=== PATIENT | female | born 2000 | race Caucasian/White ===

== ENCOUNTER 2020-01-09 10:21 | Outpatient (CLI) | payer BC, SELFPAY ==
[2020-01-09 12:03] LABS: Hematocrit 34.5 % (37.0-47.0); Hemoglobin 11.3 g/dL (12.0-15.0)
[2020-01-09 12:19] LABS: Glucose 1 Hour PP 50gm Dose 115 mg/dL
[2020-01-09 12:56] LABS: HIV 1/2 Ab P24 Ag Result Negative (Negative)
[2020-01-09] MEDS: RHO(D) IMMUNE GLOBULIN 300 MCG SYRINGE IM (15:48)
== END 2020-01-09 10:22 | disposition home or self-care (01) ==
PROVIDERS: Visit Provider Obstetrics & Gynecology
DX: Z34.92 Encounter for supervision of normal pregnancy, unspecified, second trimester (principal); Z3A.00 Weeks of gestation of pregnancy not specified
CPT/HCPCS: 36415; 82947; 85014; 85018; 85461; 86703; 90384; 96372; G0432; J2790

== ENCOUNTER 2021-04-15 14:11 | Emergency (ER) | payer OTHER, SELFPAY ==
--- NOTE | ~2021-04-15 | US_ITS ---
EXAMINATION: US OB <= 14 weeks fetus DATE: 04/15/2021 16:39 INDICATION: Bleeding during first trimester TECHNIQUE: Real-time pelvic transabdominal and transvaginal ultrasound was performed. COMPARISON: None. FINDINGS: The uterus measures 11.3 x 7.8 x 8.7 cm. There is an intrauterine gestational sac. There i s a 1.7 x 1.1 x 1.6 cm hypoechoic area adjacent to the gestational sac. A yolk sac is identified. Fet al heart motion is identified measuring 169 beats per minute (bpm) by M-mode Doppler. The crown rump length measures 2.4 cm , which correlates with an estimated gestational age of 9 weeks and 1 da y(s) (+/-) 6 day(s). The right ovary measures 2.7 x 2.3 x 3.5 cm. The left ovary measures 2.0 x 2.7 x 1.9 cm. There is nor mal vascular flow in the ovaries. There is no free fluid in the pelvis. IMPRESSION: 1. Live intrauterine with an estimated gestational age of 9 weeks and 1 day(s) (+/-) 6 day( s) and an estimated delivery date of 11/17/2021. 2. Small subchronic hematoma. Reviewed, dictated and finalized at location A. IMPRESSION: 1. Live intrauterine with an estimated gestational age of 9 weeks and 1 day(s) (+/-) 6 day(s) and an estimated delivery date of 11/17/2021. 2. Small subchronic hematoma.
[2021-04-15 14:13] VITALS: BP 111/71; PULSE 105; RESP 20; TEMP 36.5; O2SAT 98
[2021-04-15 14:36] LABS: Basophils Absolute Auto 0.1 K/mm3 (0.0-0.1); Basophils Percent Auto 0.7 % (0.2-1.2); Eosinophils Absolute Auto 0.2 K/mm3 (0-0.3); Eosinophils Percent Auto 2.5 % (0-4.4); Hematocrit 39.2 % (37.0-47.0); Hemoglobin 12.8 g/dL (12.0-15.0); Immature Granulocyte Absolute 0.03 K/mm3 (0.00-0.031); Immature Granulocyte Percent A 0.4 % (0-0.5); Lymphocytes Percent Auto 26.2 % (18.3-44.2); Mean Corpuscular HGB Conc 32.7 g/dl (32-36); Mean Corpuscular Hemoglobin 27.4 pg (26-34); Mean Corpuscular Volume 83.8 fl (80-100); Mean Platelet Volume 9.8 fl (7.4-10.4); Monocytes Absolute Auto 0.5 K/mm3 (0.1-0.6); Monocytes Percent Auto 6.2 % (2.6-8.5); Neutrophils Absolute Auto 4.6 K/mm3 (1.3-6.7); Platelet Count Result 311 k/mm3 (150-375); Red Blood Count 4.68 M/mm3 (4.2-5.4); Red Cell Distribution Width 13.5 % (11.5-14.5); White Blood Count 7.2 K/mm3 (4.5-10.0)
[2021-04-15 15:59] VITALS: BP 120/79; PULSE 90; RESP 18; O2SAT 100
--- NOTE | 2021-04-15 16:09 | PC.NURSE ---
JASMYNE Moses present at bedside
--- NOTE | 2021-04-15 16:14 | ED.PREGNANCY ---
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 <Aurelia Machuca PA-C - Last Filed: 04/15/21 17:18> Stated complaint: 10 WKS PREG , SPOTTING <Aurelia Machuca PA-C - Last Filed: 04/15/21 17:18> Time Seen by Provider: 04/15/21 16:07 <Aurelia Machuca PA-C - Last Filed: 04/15/21 17:18> Source: patient <Aurelia Machuca PA-C - Last Filed: 04/15/21 17:18> Mode of arrival: ambulatory <INGRID Herring Last Filed: 04/15/21 17:18> Limitations: no limitations <Aurelia Machuca PA-C - Last Filed: 04/15/21 17:18> History of Present Illness HPI Narrative: This is a 20 year old , about 10 weeks , that presents to the ER for vaginal spotting over the last couple of days. Reports some mild associating pelvic cramping. She has not seen her OB yet or had an ultrasound this . She is going to be seen at [facility]. Denies fever, or dysuria. <Aurelia Machuca PA-C - Last Filed: 04/15/21 17:18> Related Data Home medications: Home Medications Medication Instructions Recorded Confirmed Daily 04/15/21 04/15/21 <Aurelia Machuca PA-C - Last Filed: 04/15/21 17:18> Allergies/Adverse reactions: Allergies Allergy/AdvReac Type Severity Reaction Status Date / Time No Known Allergies Allergy Verified 04/15/21 16:04 <Aurelia Machuca PA-C - Last Filed: 04/15/21 17:18> Review of Systems Review of Systems: CONSTITUTIONAL: Denies fever GASTROINTESTINAL: Denies abdominal pain, nausea, vomiting GENITOURINARY: Denies dysuria <Aurelia Machuca PA-C - Last Filed: 04/15/21 17:18> All systems reviewed & are unremarkable except as noted in HPI and below <INGRID Herring Last Filed: 04/15/21 17:18> PMFSH Past Medical History Medical History: Medical History (Updated 04/15/21 @ 17:18 by Aurelia Machuca PA-C) No active medical problems <Aurelia Machuca PA-C - Last Filed: 04/15/21 17:18> Family History Family History: Family History (Updated 07/11/18 @ 10:10 by DOCTOR UNKNOWN) Grandparent Family history of malignant neoplasm of cervix Other No family history of cardiovascular disease No family history of hypertension No family history of malignant neoplasm <Aurelia Machuca PA-C - Last Filed: 04/15/21 17:18> Social History Social History: Social History Smoking status: Never smoker Alcohol intake: never <Aurelia Machuca PA-C - Last Filed: 04/15/21 17:18> Exam Narrative: GENERAL: Well-appearing, well-nourished, and in no acute distress. HEAD: Normocephalic, atraumatic. EYES: EOMI. CHEST: Clear to auscultation. No respiratory distress. No wheezes rales or rhonchi HEART: Regular rate and rhythm. No murmur heard. Normal peripheral pulses. ABDOMEN: Soft, nontender, nondistended, normal active bowel sounds. EXTREMITIES: Normal range of motion. No edema. SKIN: Warm, dry, no rash. NEURO: No focal deficits. Alert and oriented x3. PSYCH: Normal mood and affect PELVIC: Scant amount of brown discharge in the vaginal vault <Aurelia Machuca PA-C - Last Filed: 04/15/21 17:18> Course Consultations Consultation #1: Spoke with Dr. Bond about patient and work-up who will follow-up in clinic. <Aurelia Machuca PA-C - Last Filed: 04/15/21 17:18> Date: 04/15/21 <Aurelia Machuca PA-C - Last Filed: 04/15/21 17:18> Time: 17:16 <Aurelia Machuca PA-C - Last Filed: 04/15/21 17:18> Vital Signs Vital signs: Vital Signs Temperature 97.7 F 04/15/21 14:13 Pulse Rate 105 H 04/15/21 14:13 Respiratory Rate 20 04/15/21 14:13 Blood Pressure 111/71 04/15/21 14:13 Pulse Oximetry 98 04/15/21 14:13 Temperature 97.4 F L 04/15/21 18:59 Pulse Rate 66 04/15/21 18:59 Respiratory Rate 18 04/15/21 18:59 Blood Pressure 108/69 04/15/21 18:59 Pulse Oximetry 100 04/15/21 18:59 <Aurelia Machuca PA-C - Last Filed: 04/15/21 17:18> MDM - OB/Uterine Contract
[2021-04-15] MEDS: RHO(D) IMMUNE GLOBULIN 300 MCG/2 ML SYRINGE IM (17:55)
--- NOTE | 2021-04-15 18:48 | PC.NURSE ---
heart tones checked by RN Ang. HR 133 in right lower quadrant.
[2021-04-15 18:59] VITALS: BP 108/69; PULSE 66; RESP 18; TEMP 36.3; O2SAT 100
== END 2021-04-15 19:02 | disposition home or self-care (01) ==
PROVIDERS: Emergency Provider General Practice
DX: O46.8X1 Other antepartum hemorrhage, first trimester (principal); Z3A.09 9 weeks gestation of pregnancy
CPT/HCPCS: 36415; 76801; 84702; 85025; 85461; 90384; 96372; 99284; J2790

== ENCOUNTER 2021-08-21 11:50 | Outpatient (RCR) | payer OTHER, SELFPAY ==
[2021-08-18 15:50] LABS: Hematocrit 33.6 % (37.0-47.0); Hemoglobin 11.1 g/dL (12.0-15.0)
[2021-08-18 15:58] LABS: Glucose 1 Hour PP 50gm Dose 147 mg/dL
[2021-08-18 16:40] LABS: HIV 1/2 Ab P24 Ag Result Negative (Negative)
[2021-08-19 07:24] LABS: Rapid Plasma Reagin Non-Reactive (NonReactive)
[2021-08-21] MEDS: RHO(D) IMMUNE GLOBULIN 300 MCG/2 ML SYRINGE IM (12:03)
== END 2021-11-16 23:59 | disposition home or self-care (01) ==
LOC: ANHLAB 11:50
PROVIDERS: Visit Provider Obstetrics & Gynecology
DX: Z11.4 Encounter for screening for human immunodeficiency virus [HIV] (principal); Z29.13 Encounter for prophylactic Rho(D) immune globulin; O36.0130 Maternal care for anti-D [Rh] antibodies, third trimester, not applicable or unspecified; Z3A.00 Weeks of gestation of pregnancy not specified
CPT/HCPCS: 36415; 82947; 85014; 85018; 85461; 86592; 86703; 90384; 96372; G0432; J2790

== ENCOUNTER 2021-09-22 10:02 | Observation (INO) | payer OTHER, SELFPAY ==
--- NOTE | ~2021-09-22 | US_ITS ---
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 Biophysical profile. TECHNIQUE: Real-time transabdominal obstetric ultrasound. FINDINGS: No prior studies for comparison. There is a single living fetus in vertex presentation. The placenta is anterior without placenta pre via. ROBSON measures 12.4 cm. cardiac activity and movement is noted with a heart rate of 122 beats per minute. Biophysical profile: breathin of 2 movement: 2 of 2 tone: 2 of 2 Amniotic flud pocket: 2 of 2 Total score: 8 of 8 IMPRESSION: 1. Single living intrauterine in vertex presentation. 2: Total biophysical profile score of 8/8. Reviewed, dictated and finalized at location B. BINDER APPRENTICE
[2021-09-22 10:16] VITALS: BMI 40.6
--- NOTE | 2021-09-22 10:17 | OBADM ---
This patient, Jennifer Perez, admitted to the OB room OB Post 116 for observation. Patient/family oriented to hospital policies and general routines including ID bracelet, bed and alarms, visiting hours, pain management, procedures, bathroom and other care routines, personal items, smoking policy, room service/diet, and visiting hours. Patient/Family are encouraged to report perceived risks to care and to ask questions if they do not understand what they are told or what they should do.
[2021-09-22 10:26] VITALS: BP 102/70; PULSE 68
--- NOTE | 2021-10-06 07:45 | PM.OBTRLD ---
OB - Triage/Final Diagnosis Visit Information Comments/Additional reasons for admission: I have assessed the risk for this patient, Jennifer Perez, and determined that she would benefit from observation care. Final Diagnosis (1) False labor: Code(s): O47.9 - False labor, unspecified Status: Acute
== END 2021-09-22 12:14 | disposition home or self-care (01) ==
PROVIDERS: Admitting Provider Obstetrics & Gynecology; Visit Provider Obstetrics & Gynecology
DX: O47.03 False labor before 37 completed weeks of gestation, third trimester (principal); Z3A.32 32 weeks gestation of pregnancy
CPT/HCPCS: 76815; 76819; G0378; G0379

== ENCOUNTER 2021-11-07 04:53 | Inpatient (IN) | payer OTHER, SELFPAY ==
[2021-11-07] VITALS (82 sets, daily range): BP systolic 74–123; BP diastolic 26–98; PULSE 55–118; RESP 18; TEMP 36.6–36.9; O2SAT 94–100; BMI 40.6
--- OUTSIDE RECORDS SUMMARY | 2021-11-07 04:54 | XMS_ITS | Encounter Summary ---
:2000 Author Reason for Visit None recorded. Assessment and Plan 1. Nonreassuring status ? non-stress test Discussion Note: None recorded.Patient educational handouts: No information available. Plan of Care Reminders Provider Appointments None ? ? recorded. Lab None ? ? recorded. Referral None ? ? recorded. Procedures None ? ? recorded. Surgeries None ? ? recorded. Imaging 10/28/2021 [place] Non-stress Test Medications Name Start Date ? ? ? Medications Administered None recorded. Vitals None recorded. Results Lab Results None recorded. Allergies Code Code System Name Reaction Severity Onset NKDA ? ? ? Problems Name Status Onset Date Source ? Active 05/16/2021 ? Procedures Date Name Performed by ? 10/28/2021 Non-stress Test [place] [address] [place] [address] [address]
--- OUTSIDE RECORDS SUMMARY | 2021-11-07 04:54 | XMS_ITS ---
:2000 Author Care Team Providers Name Role Phone Shani Morillo Primary Care Provider Unavailable Allergies Code Code System Name Reaction Severity Status Onset NKDA ? Medications Name Status Start Date Stop Date ? ? nitrofurantoin Completed ? 07/07/2021 monohydrate/macrocrystals 100 mg capsule Active ? Not available Problems Name Status Onset Date Source ? Active 05/16/2021 ? Procedures Date Name Performed by ? 07/07/2021 US, Obstetric, 2Nd or 3Rd Trimester [place] [address] ([address]) 07/07/2021 US, Obstetric, Transvaginal [place] [address] [place] [address] ([address]) 07/26/2021 US, Obstetric, Follow-up [place] [address] [place] [address] ([address]) 09/22/2021 Non-stress [place] [address] ([address]) 10/28/2021 Non-stress Test [facility] Turcios
--- OUTSIDE RECORDS SUMMARY | 2021-11-07 04:54 | XMS_ITS | Encounter Summary ---
:2000 Author Reason for Visit OB visit OB [id number] EDC 11/12/2021 LMP 02/05/2021 Assessment and Plan Assessment Note Patient is __38_weeks . Dis cussed plan. 1. Routine care Discussion Note: None recorded.Patient educational handouts: No information available. Plan of Care Reminders Provider Appointments None ? ? recorded. Lab None ? ? recorded. Referral None ? ? recorded. Procedures None ? ? recorded. Surgeries None ? ? recorded. Imaging None ? ? recorded. Medications Name Start Date ? ? ? Medications Administered None recorded. Vitals Height Weight BMI Blood Pressure 5 ft 9 in 277 lbs 40.9 kg/m2 115/76 mm[Hg] Results Lab Results None recorded. Allergies Code Code System Name Reaction Severity Onset NKDA ? ? ? Problems Name Status Onset Date Source ? Active 05/16/2021 ? Procedures Date Name Performed by ? 10/28/2021 Non-stress Test [facility]
--- OUTSIDE RECORDS SUMMARY | 2021-11-07 04:54 | XMS_ITS | Encounter Summary ---
:2000 Author Reason for Visit OB visit 37W 6D EDC 11/12/2021 Assessment and Plan Assessment Note Patient is _37__weeks . Dis cussed plan. 1. Routine care [...] BMI Blood Pressure 5 ft 9 in 280 lbs 41.3 kg/m2 119/78 mm[Hg] Results Lab Results None recorded. Allergies Code Code System Name Reaction Severity Onset NKDA ? ? ? Problems Name Status Onset Date Source ? Active 05/16/2021 ? Procedures Date Name Performed by ? 10/28/2021 Non-stress Test [place]
--- OUTSIDE RECORDS SUMMARY | 2021-11-07 04:54 | XMS_ITS | Encounter Summary ---
:2000 Author Reason for Visit OB visit OB [id number] EDC 11/12/2021 LMP 02/05/2021 Assessment and Plan Assessment Note Patient is ___weeks . Discu ssed plan. 1. Routine care Discussion Note: None recorded.Patient educational handouts: No information available. Plan of Care Reminders Provider Appointments None ? ? recorded. Lab None ? ? recorded. Referral None ? ? recorded. Procedures None ? ? recorded. Surgeries None ? ? recorded. Imaging None ? ? recorded. Medications Name Start Date ? ? ? Medications Administered None recorded. Vitals Height BMI 5 ft 9 in 41.3 kg/m2 Results Lab Results None recorded. Allergies Code Code System Name Reaction Severity Onset NKDA ? ? ? Problems Name Status Onset Date Source ? Active 05/16/2021 ? Procedures None recorded. Vaccine List None recorded. Social History Tobacco Smoking Status Never Smoker What is the highest grade or level of school you have [id number] 4-0 co
--- OUTSIDE RECORDS SUMMARY | 2021-11-07 04:55 | XMS_ITS | Encounter Summary ---
:2000 Author Reason for Visit OB visit 28w5d Assessment and Plan 1. Routine care Discussion Note: None recorded.Patient [...] BMI Blood Pressure 5 ft 9 in 271 lbs 40 kg/m2 112/76 mm[Hg] Results Lab Results None recorded. Allergies Code Code System Name Reaction Severity Onset NKDA ? ? ? Problems Name Status Onset Date Source ? Active 05/16/2021 ? Procedures Date Name Performed by ? 07/26/2021 US, Obstetric, Follow-up [place] [address] [place] [address]
--- OUTSIDE RECORDS SUMMARY | 2021-11-07 04:55 | XMS_ITS | Encounter Summary ---
:2000 Author Reason for Visit OB visit Assessment and Plan Assessment Note Patient is [...] BMI Blood Pressure 5 ft 9 in 281 lbs 41.5 kg/m2 117/72 mm[Hg] Results Lab Results None recorded. Allergies Code Code System Name Reaction Severity Onset NKDA ? ? ? Problems Name Status Onset Date Source ? Active 05/16/2021 ? Procedures Date Name Performed by ? 09/22/2021 Non-stress Test [place] [id number] [address]
--- OUTSIDE RECORDS SUMMARY | 2021-11-07 04:55 | XMS_ITS | Encounter Summary ---
:2000 Author Reason for Visit OB visit 30w5d Assessment and Plan 1. Routine care Discussion [...] BMI Blood Pressure 5 ft 9 in 272 lbs 40.2 kg/m2 108/75 mm[Hg] Results Lab Results None recorded. Allergies Code Code System Name Reaction Severity Onset NKDA ? ? ? Problems Name Status Onset Date Source ? Active 05/16/2021 ? Procedures None recorded. Vaccine List None recorded. Social History Tobacco Smoking Status Never Smoker What is the highest grade or level of school you have [id number] 4-0 completed or the highest degree you have received? What type of diet are you following? REGULAR
--- OUTSIDE RECORDS SUMMARY | 2021-11-07 04:55 | XMS_ITS | Encounter Summary ---
:2000 Author Reason for Visit OB visit 32w5d Assessment and Plan 1. Routine care Discussion [...] BMI Blood Pressure 5 ft 9 in 275 lbs 40.6 kg/m2 124/80 mm[Hg] Results Lab Results None recorded. Allergies Code Code System Name Reaction Severity Onset NKDA ? ? ? Problems Name Status Onset Date Source ? Active 05/16/2021 ? Procedures Date Name Performed by ? 09/22/2021 Non-stress Test [place] [address] [place] [address]
[2021-11-07 05:22] LABS: Basophils Absolute Auto 0.1 K/mm3 (0.0-0.1); Basophils Percent Auto 0.5 % (0.2-1.2); Eosinophils Absolute Auto 0.4 K/mm3 (0-0.3); Eosinophils Percent Auto 3.3 % (0-4.4); Hematocrit 38.7 % (37.0-47.0); Hemoglobin 12.3 g/dL (12.0-15.0); Immature Granulocyte Absolute 0.07 K/mm3 (0.00-0.031); Immature Granulocyte Percent A 0.6 % (0-0.5); Lymphocytes Absolute Auto 2.97 K/mm3 (0.9-3.2); Mean Corpuscular HGB Conc 31.8 g/dl (32-36); Mean Corpuscular Hemoglobin 26.6 pg (26-34); Mean Corpuscular Volume 83.8 fl (80-100); Monocytes Absolute Auto 0.7 K/mm3 (0.1-0.6); Monocytes Percent Auto 6.3 % (2.6-8.5); Neutrophils Absolute Auto 6.9 K/mm3 (1.3-6.7); Neutrophils Percent Auto 62.3 % (45.5-73.1); Platelet Count Result 260 k/mm3 (150-375); Red Blood Count 4.62 M/mm3 (4.2-5.4)
[2021-11-07] MEDS: LACTATED RINGERS 1,000 ML 125 ML IV CONT ×2 (05:33→08:10)
[2021-11-07] MEDS: OXYTOCIN 30 UNITS/NS 500 ML 30 UNITS/500 ML BAG IV CONT (05:34)
[2021-11-07 05:35] LABS: Amphetamine Screen Urine Negative (Negative); Barbiturate Screen Urine Negative (Negative); Benzodiazepines Screen Urine Negative (Negative); Cannabinoid Screen Urine Negative (Negative); Cocaine Screen Urine Negative (Negative); Methadone Screen Urine Negative (Negative); Opiate Screen Urine Negative (Negative); Phencyclidine Screen Urine Negative (Negative)
[2021-11-07] MEDS: AMPICILLIN 2 GM/NS 100 ML 2 GM/100 ML BAG IVPB (05:36)
--- NOTE | 2021-11-07 06:23 | WPDANESEPP ---
Anes - Eval Pre Procedure Procedure: labor epidural Date/Time: 11/07/21 06:23 Surgeon: guanako Pre Op Diagnosis: IOL Patient Data Age: 20 Gender: F Height: 1.75 m Weight: 125 kg Last Vital Signs Pulse 85 11/07/21 06:16 BP 94/69 L 11/07/21 06:16 Allergies Allergy/AdvReac Type Severity Reaction Status Date / Time No Known Allergies Allergy Verified 04/15/21 16:04 Home Medications Medication Instructions Recorded Confirmed Type Daily 1 tablet PO DAILY 04/15/21 10/21/21 History Laboratory Tests 11/07/21 11/07/21 11/07/21 05:10 05:10 05:10 WBC 11.0 K/mm3 H K/mm3 (4.5-10.0) RBC 4.62 M/mm3 M/mm3 (4.2-5.4) Hgb 12.3 g/dL g/dL (12.0-15.0) Hct 38.7 % % (37.0-47.0) MCV 83.8 fl fl (80-100) MCH 26.6 pg pg (26-34) MCHC 31.8 g/dl L g/dl (32-36) RDW 15.0 % H % (11.5-14.5) Plt Count 260 k/mm3 k/mm3 (150-375) MPV 10.0 fl fl (7.4-10.4) Immature Gran % (Auto) 0.6 % H % (0-0.5) Neut % (Auto) 62.3 % % (45.5-73.1) Lymph % (Auto) 27.0 % % (18.3-44.2) Cecil % (Auto) 6.3 % % (2.6-8.5) Eos % (Auto) 3.3 % % (0-4.4) Baso % (Auto) 0.5 % % (0.2-1.2) Lymph # (Auto) 2.97 K/mm3 K/mm3 (0.9-3.2) Cecil # (Auto) 0.7 K/mm3 H K/mm3 (0.1-0.6) Eos # (Auto) 0.4 K/mm3 H K/mm3 (0-0.3) Baso # (Auto) 0.1 K/mm3 K/mm3 (0.0-0.1) Abs Immat Gran (auto) 0.07 K/mm3 H K/mm3 (0.00-0.031) Absolute Neuts (auto) 6.9 K/mm3 H K/mm3 (1.3-6.7) Absolute Nucleated RBC 0.0 K/mm3 K/mm3 (0.0-0.012) Nucleated RBC % 0.0 % % (0.0-0.2) Urine Opiates Screen Negative (Negative) Urine Methadone Screen Negative (Negative) Ur Barbiturates Screen Negative (Negative) Ur Phencyclidine Scrn Negative (Negative) Ur Amphetamine Screen Negative (Negative) U Benzodiazepines Scrn Negative (Negative) Urine Cocaine Screen Negative (Negative) U Cannabinoids Screen Negative (Negative) RPR Pending Patient hx anesthesia problems: none Family hx anesthesia problems: none Results Review: All pre-operative results and documents have been reviewed as part of the pre-operative evaluation. [facility] Past Medical History Medical History (Updated 11/07/21 @ 06:24 by Angelita Gambino CRNA) IUP (intrauterine ), incidental Morbid obesity due to excess calories No active medical problems Family History Family History Grandparent Family history of malignant neoplasm of cervix Other No family history of cardiovascular disease No family history of hypertension No family history of malignant neoplasm Social History Social History Smoking status: Never smoker Alcohol intake: never Substance use: never Spiritual care concerns: No Exam Day of Procedure 11/07/21 06:23
--- NOTE | 2021-11-07 07:48 | WPDOBADMIT ---
Obstetrics - Admit Note Admission Note: record reviewed. No pertinent additions to the history and/or any subsequent changes in the physical findings that are not consistent with the expected course of the were found. IOL SVE by RN Additions to the history and/or subsequent changes in the physical findings follow. None.
[2021-11-07 07:49] LABS: Rapid Plasma Reagin Non-Reactive (NonReactive)
[2021-11-07] MEDS: PHENYLEPHRINE 1,000 MCG/10 ML SYRINGE 100 MCG IV PUSH (08:26)
[2021-11-07] MEDS: ONDANSETRON INJ 4 MG/2 ML VIAL IV PUSH (08:31)
[2021-11-07] MEDS: AMPICILLIN 1 GM/NS 50 ML 1 GM/50 ML BAG IVPB ×2 (09:33→13:46)
--- NOTE | 2021-11-07 12:10 | PM.OBPNLAB ---
Pain Control Date/time seen: 11/07/21 12:10 SVE 3-4/70/ -2 AROM large amount of clear odorless fluid, anticipate vaginal delivery
--- NOTE | 2021-11-07 14:32 | PM.OBPRVD ---
OB - Delivery Note Procedure Delivery date: 11/07/21 Procedure: vaginal delivery Events: Positive Group B Strep (GBS) Induction method: AROM and Per Pitocin Protocol Delivery monitor: External FHT, External Uterine and Internal Uterine Route of delivery: Laceration Description: None Specimen: No Quantitative Blood Loss (ml): 70 Anesthesia type: Epidural Baby Date of : 11/07/21 Time of : 14:19 Weeks of gestation at delivery: 39 gender: Female Weight (pounds): 6 Weight (ounces): 12 presentation: vertex position: Left Occiput Anterior Cord Vessel Description: 3 Vessels, Clamped/Cut and Delayed Cord Clamping score one minute: 9 score five minutes: 9 Narrative: mother and baby skin to skin in stable condition
[2021-11-07] MEDS: OXYTOCIN 30 UNITS/NS 500 ML 30 UNITS/500 ML BAG 125 UNITS IV CONT (14:56)
[2021-11-07] MEDS: BENZOCAINE 20% AER SPR (*SP) 56 GM CAN 1 SPRAY TOPICAL (16:51)
[2021-11-07] MEDS: WITCH HAZEL 40 PADS 1 PAD TOPICAL (16:51)
--- NOTE | 2021-11-07 17:15 | PC.NURSE ---
Patient transferred to post room #284 per wheelchair. Support person present. Oriented to unit, room, information board, rooming in, admission packet and security measures. Patient verbalizes understanding.
[2021-11-07] MEDS: IBUPROFEN 600 MG TABLET PO (17:31)
[2021-11-07] MEDS: LANOLIN (LANSINOH) 7.5 GM CREAM 1 APPLIC TOPICAL (17:32)
[2021-11-07] MEDS: ACETAMINOPHEN 325 MG TABLET 650 MG PO (22:40)
[2021-11-08 04:26] VITALS: BP 117/66; PULSE 66; RESP 16; TEMP 36.6
[2021-11-08] MEDS: IBUPROFEN 600 MG TABLET PO (04:30)
[2021-11-08 06:00] LABS: Hematocrit 36.1 % (37.0-47.0); Hemoglobin 11.3 g/dL (12.0-15.0)
--- NOTE | 2021-11-08 07:55 | PM.OBPNVD ---
OB - PN: Subj Subjective Date/time seen: 11/08/21 07:55 Patient comments: no complaints and pain well controlled baby status: doing well and nursing well [place] feeding status: exclusively breast feeding Narrative: would like DC today OB - PN: Obj Data Labs CBC & Chem 7: 11/08/21 04:30 Labs: Laboratory Results - last 24 hr 11/07/21 11/08/21 11/08/21 05:10 04:30 04:30 Hgb 11.3 L Hct 36.1 L Blood Type A Negative Antibody Screen TNP Antibody Identification Inconclusive Antigen Identification Cancelled ROMINA, IgG Interpret Not Performed ROMINA, Complement Interp Not Performed Screen Negative Baby's Blood Type A pos Baby's ROMINA Negative Doses of RhIg Required 1 OB - PN A/P Assessment and Plan (1) , delivered: Code(s): O80 - Encounter for full-term uncomplicated delivery Status: Acute Plan day: 1 Plan: routine care and discharge home Comments: DC instructions given Time Spent With Patient Time: Total time spent is greater than 50% in coordination of care (as documented) at patient's floor/unit and/or counseling patient: Time with patient: less than 15 minutes Exam Narrative: NAD abdomen soft, nontender, fundus firm below the umbilicus Extremities nontender, 1+ edema
--- NOTE | 2021-11-08 07:59 | PM.OBDSVD ---
DS: Admitting Diagnosis Discharge Date 11/08/21 Admitting Diagnosis IOL, at term DS: Discharge Diagnosis Discharge Diagnosis (1) , delivered: Code(s): O80 - Encounter for full-term uncomplicated delivery Status: Acute OB - DS: Summary OB Procedures : Ultrasound OB Procedures Intrapartum: Spontaneous Vag Delivery OB Procedures: : None Peripartum Data Infant Delivery Method: Natural Vaginal complications: none Status at Discharge Functional status at discharge: independent ambulation Time Spent with Patient Time attestation: Total time spent providing and/or coordinating discharge services: DS: Data Data Completed and Pending Labs on day of discharge: Labs from last 24 hours 11/08/21 11/08/21 11/07/21 04:30 04:30 05:10 Hgb 11.3 L Hct 36.1 L Blood Type A Negative Antibody Screen TNP Antibody Identification Inconclusive Antigen Identification Cancelled ROMINA, IgG Interpret Not Performed ROMINA, Complement Interp Not Performed Screen Negative Baby's Blood Type A pos Baby's ROMINA Negative Doses of RhIg Required 1 Discharge Plan Discharge Attending physician on discharge: Sarah Rubin Discharging Clinician: Sarah Rubin Anticipated Discharge Date/Time: 11/08/21 14:00 Patient Disposition: Home, Self-Care Activity: pelvic rest Diet: regular Discharge Instructions: ibuprofen 600mg every 6 hours as needed Patient Instructions: Antibiotic Form Stand Alone Forms: General Discharge Information Follow-up/Referrals: Nicolle Jones CNM [Primary Care Provider] - 1 Week Discharge Medications: Continued Daily 1 tablet PO DAILY RF: 0 Date of admission: 11/07/21 04:53 Primary Care Provider: Nicolle Jones Admitting Provider: Kaleigh Bond Attending physician on admission: Kaleigh Bond Condition: Stable
[2021-11-08 08:20] VITALS: BP 113/61; PULSE 64; RESP 18; TEMP 36.1; O2SAT 98
--- NOTE | 2021-11-08 08:27 | PC.NURSE ---
0730 - Introductions were made, then consulted with patient to assess needs related to . Mother led the conversation with her experience feeding her infant so far. Mother breastfed at 0700 without discomfort. Encouraged understanding of the benefits of skin to skin (unwrapping and placing vertically on her chest), responsive feeding and how to watch for early feeding signs, frequency of feeding on demand about every 8-12 times in 24 hours (every 2-3 hours), milk production, duration of feeding, signs of adequate intake/output and how to record on the feeding sheet. Reviewed positioning and ear, shoulder, hip alignment, supporting the breast, asymmetrical latch (off-center), and leading with the chin with a big open side gape. Mother voiced understanding of responsive feedings, stimulating with skin to skin, hand expressed colostrum, touch, talking to to encourage if it has been 2 -3 hours since the start of the last , to call if infant does not latch or there is discomfort with . Mother also voiced understanding of calling RN for a latch assessment at the next feeding. Reported to the primary RN.
[2021-11-08] MEDS: DOCUSATE SODIUM 100 MG CAPSULE PO (08:47)
[2021-11-08] MEDS: ACETAMINOPHEN 325 MG TABLET 650 MG PO (08:47)
[2021-11-08] MEDS: MULTIVIT/MIN/PREN/FOL AC/IRON TABLET 1 TAB PO (08:47)
[2021-11-08] MEDS: RHO(D) IMMUNE GLOBULIN 300 MCG/2 ML SYRINGE IM (09:51)
[2021-11-08 12:09] VITALS: BP 110/63; PULSE 63; RESP 18; TEMP 36.2; O2SAT 100
--- NOTE | 2021-11-08 14:03 | PC.NURSE ---
[phone] Consulted with patient to assess needs related to . Mother led conversation with her experience with feeding baby so far and states is attempting to latch on the nipple only. She states she has heard infant swallowing at the breast and sometimes latches better than other times. Mother works well with her . Reviewed working with infant, breast, nipples and how to protect the nipples with an optimal deep latch, good positioning, and good hand washing. Encouraged understanding the benefits of skin to skin, responding to feeding cues, frequencies of feeding 8-12 times in 24 hours (approximately 2-3 hours), duration of feedings, milk production, intake/output feeding sheet and signs of adequate intake encouraging swallowing at the breast. Reviewed positioning and alignment, supporting breast, off-centered (asymmetrical latch) and leading with the chin with big open wide gape. latched to the right breast in football position. Mother denies discomfort. is detached due to latch not 130-150 degrees. Nipple was slightly misshaped. Assisted mother with to the left breast in football position with a better latch than the right side. has about 99% rounded cheek and mother denies any discomfort. Mother's breast tissue is very soft and latched with a wide open gape off centered with chin buried into the breast and nose near the breast. Education given to mother of how to visualize suck/swallow ratios and drinking at the breast. was able to maintain latch without discomfort to mother. Nipple care reviewed with optimal latch and good positioning, comfort, healing with warm, wet washcloth to rinse breast, then leave open to air-dry, colostrum may be left on nipples to dry but have clean hands when touching the nipple/breast as needed. Resources used to facilitate learning were used from the mom and baby guide. Mother voiced understanding of the education shared, calling for assistance if the infant does not latch or if there is discomfort with . Reported to the primary RN.
[2021-11-09 10:32] VITALS: BP 113/71; PULSE 75; RESP 16; TEMP 36.6; O2SAT 99
== END 2021-11-08 15:05 | disposition home or self-care (01) | DRG 560 ==
LOC: ANHOB2 11-08 07:59 → ANHLDR 11-09 07:27 → ANHOB2 11-09 07:27
PROVIDERS: Admitting Provider Obstetrics & Gynecology; PCP Advanced Practice Midwife; Visit Provider Obstetrics & Gynecology
DX: O99.824 Streptococcus B carrier state complicating childbirth (principal); Z37.0 Single live birth; Z3A.39 39 weeks gestation of pregnancy; O36.8330 Maternal care for abnormalities of the fetal heart rate or rhythm, third trimester, not applicable or unspecified; O69.3XX0 Labor and delivery complicated by short cord, not applicable or unspecified
CPT/HCPCS: 36415; 80307; 85014; 85018; 85025; 85461; 86592; 86850; 86880; 86900; 86901; 86902; 90384; A9270; J0290; J2370; J2405; J2590; J2790; J2795; J7120